=== PATIENT | female | born 1980 | race Caucasian/White ===

== ENCOUNTER 2020-03-13 14:12 | Emergency (ER) | payer OTHER, SELFPAY ==
--- NOTE | 2020-03-13 14:20 | ECG_ITS ---
Test Reason : CHEST PAIN Blood Pressure : / mmHG Vent. Rate : 127 BPM Atrial Rate : 127 BPM P-R Int : 158 ms QRS Dur : 080 ms QT Int : 302 ms P-R-T Axes : 064 021 039 degrees QTc Int : 438 ms Sinus tachycardia Otherwise normal ECG When compared with ECG of 16-NOV-2019 13:00, Heart rate has increased Referred By: Generic ED Physician Electronically Signed By:TRAM LEOS
--- NOTE | 2020-03-13 16:37 | ED.EAR ---
HPI - Ear Problem General Chief complaint: Ear Problems Stated complaint: rapid heart rate Time Seen by Provider: 03/13/20 16:37 Source: patient Mode of arrival: ambulatory Limitations: no limitations History of Present Illness HPI Narrative: Patient coming to the ED for ear swelling and discharge and increased pain. Patient on one day for otitis externa using ofloxacin. On her way here she had tachycardia with known [place] disease Complaint: ear pain Location: right ear Duration: constant Severity: moderate Discharge from ear: yes - purulent Associated symptoms ear: fever Related Data Allergies Allergy/AdvReac Type Severity Reaction Status Date / Time No Known Allergies Allergy Unverified 02/28/20 19:08 [No Known Allergies*] Review of Systems Constitutional: Constitutional: Reports no additional constitutional complaints Eyes: Eyes: Reports no additional eye complaints ENT: Denies dizziness Cardiovascular: Cardiovascular: Reports no additional cardiovascular complaints Respiratory: Respiratory: Reports as per HPI Gastrointestinal: Gastrointestinal: Reports no additional gastrointestinal complaints Genitourinary: Genitourinary: Reports no additional female genitourinary complaints Musculoskeletal: Musculoskeletal: Reports no additional musculoskeletal complaints Integumentary/Breasts: Skin/Breast: Denies rash Neurologic: Reports system reviewed and no additional complaints, except as documented, Denies dizziness and Denies Sensory deficit (Neuro) Psychiatric: Psychiatric: Denies anxiety [facility] Past Medical History Medical History (Updated 03/13/20 @ 17:02 by Jose Jaramillo MD) Anxiety POTS (postural orthostatic tachycardia syndrome) Social History Social History Advance Directives: No Advance Directives Information Provided: Yes Physical Exam Const: General: healthy appearing Nutritional Appearance: average body habitus Orientation/consciousness: oriented to person and patient oriented x3 Limitations: no limitations HENMT: Head: Yes normal to inspection Ears: external ear abnormal (patient with severe right otitis externa with swelling and discharge) General nose exam: Normal external nose present Mouth: Normal oral and palatal mucosa present and oropharynx normal Throat: Yes posterior oropharynx normal Eyes: General: appearance normal, both eyes and all related structures Neck: Other: supple Neck: Yes normal visual inspection Chest: Chest palpation & inspection: normal inspection of the chest Resp: Auscultation: clear to auscultation bilaterally Cardio: Jugular venous distension: no JVD Rate: regular rate Rhythm: regular rhythm Heart sounds: S1 normal heart sound present and S2 normal heart sound present GI: Inspection: Yes normal to inspection Palpation (GI): Soft to palpation, nontender and No hepatosplenomegaly present Auscultation: normal bowel sounds : General: Yes no CVA tenderness Back/Spine/Pelvis: Back: no CVA tenderness Skin: General skin exam: no rashes or lesions noted Neuro: General: oriented to person and patient oriented x3 Cranial nerves: Yes CN's II-XII intact bilaterally Motor exam (neuro): 5/5 motor strength present throughout Sensory Exam: No Sensory deficit (Neuro) Extrem: General: Yes normal to inspection Psych: Appearance: grossly normal Course Reevaluation(s) Reevaluation #1: heart rate 115, placed earwick and applied oflaxacin Time: 16:54 Reevaluation #2: procedure: earwick application Time: 16:58 MDM - Ear ECG Data Attestation: I personally reviewed and interpreted this ECG as follows: ECG interpretation date: 03/13/20 ECG interpretation time: 16:42 Interpretation: sinus rate of 125, no st or twave changes Discharge Plan Discharge Clinical Impression: Otitis externa Qualifiers: Otitis externa type: swimmer's ear Chronicity: acute Laterality: right Qualified Code(s): H60.331 - Swimmer's ear, right ear Patient Disposition: Home, Self-Care Instructions: Otitis Externa (ED)
[2020-03-13 16:43] VITALS: BP 146/94; PULSE 126; RESP 14; O2SAT 100; BMI 25.5
[2020-03-13 16:51] VITALS: TEMP 38.3
[2020-03-13 17:29] VITALS: BP 158/89; PULSE 108; PULSE 115; RESP 12; O2SAT 100
== END 2020-03-13 18:10 | disposition home or self-care (01) ==
PROVIDERS: Emergency Provider Emergency Medicine; PCP Internal Medicine
DX: H60.331 Swimmer's ear, right ear (principal); H60.501 Unspecified acute noninfective otitis externa, right ear; I49.8 Other specified cardiac arrhythmias
CPT/HCPCS: 93005; 93010; 99283; 99284

== ENCOUNTER 2025-05-17 15:24 | Outpatient (REF) | payer OTHER, SELFPAY ==
[2025-05-17 18:33] LABS: Appearance Urine Turbid; Glucose Urine UA Negative (Negative); PH 5.5 (5.0-9.0); Specific Gravity - Urine 1.025 (1.005-1.025)
[2025-05-17 18:52] LABS: Hematocrit 44.5 % (37.0-47.0); Hemoglobin 15.4 g/dl (12.0-16.0); Imm Gran Abs Auto 0.02 X10*3/uL (0.00-0.03); Imm Gran Pct Auto 0.3 % (0.0-0.4); Lymphocytes Absolute Auto 1.3 X10*3/uL (1.2-4.9); MANUAL DIFF FLAG SCAN; Mean Corpuscular HGB Conc 34.6 g/dl (31.0-35.0); Mean Corpuscular Hemoglobin 29.9 pg (27.0-33.0); Mean Corpuscular Volume 86.4 fL (80.0-98.0); NRBC Abs Auto 0.000 X10*3/uL (0.0-0.012); NRBC Pct Auto 0.0 /100WBC (0.0-0.2); PLT CLUMP 1; Red Blood Count 5.15 X10*6/uL (4.20-5.50); SCAN SMEAR FLAG 1
[2025-05-17 19:24] LABS: Alanine Aminotransferase 20 U/L (0-31); Albumin Level 4.8 g/dL (3.5-5.0); Alkaline Phosphatase 77 U/L (39-117); Anion Gap 10 (12-20); Aspartate Amino Transferase 21 U/L (5-31); Blood Urea Nitrogen 12 mg/dL (9-16); Calcium 8.9 mg/dL (8.4-10.2); Carbon Dioxide 29 mmol/L (22-29); Chloride 108 mmol/L (96-108); Cholesterol 165 mg/dL (<200); Estimated Glomerular Filt Rate > 60; HDL Cholesterol 44 mg/dL (>40); Magnesium 2.3 mg/dL (1.6-2.6); Potassium 3.8 mmol/L (3.3-5.1); Sodium 143 mmol/L (135-145); Total Protein 7.2 g/dL (6.5-8.0); Triglycerides 175 mg/dL (<150)
[2025-05-17 19:27] LABS: Platelet Count 300 X10*3/uL (160-400); White Blood Count 7.4 X10*3/uL (4.8-10.8)
--- OUTSIDE RECORDS SUMMARY | 2025-05-17 19:47 | XMS_ITS | Clinical Summary ---
Author Organization [facility], Address [address] [place] [address] [place] [address] Phone Care Team Providers Care Bss Solution Architect Name Role Phone Reyna Bailey MD Primary Care Provider Unavailab le Allergies No known active allergies Medications Spacer/Aero-Hol ding Chambers (OptiChamber Gege) misc USE DIRECTED 0 Active predniSONE (DELTASONE) 20 MG tablet TAKE 3 TABS BY MOUTH WITH FOOD ONCE DAILY X2 DAYS. THEN 2 TABS X3 DAYS THEN 1 TAB X2 DAYS THEN STOP 0 Active nystatin (MYCOSTATIN) 333876 units tablet 0 Active metoclopramide (REGLAN) 10 MG tablet TAKE 1 TABLET BY MOUTH 4 TIMES A DAY (BEFORE MEALS AND AT BEDTIME) NEEDED FOR NAUSEA 0 Active ALPRAZolam (XANAX) 0.25 MG tablet TAKE 2 TABLETS BY MOUTH DAILY 0 Active albuterol HFA (PROVENTIL HFA;VENTOLIN HFA) 108 (90 Base) MCG/ACT inhaler INHALE 2 PUFFS INTO THE LUNGS EVERY 6 HOURS NEEDED FOR COUGH, WHEEZING OR SHORTNESS OF BREATH 0 Active Social History Tobacco Use Types Packs/Day Years Used Date Smoking Tobacco: Unknown Comments Unknown Sex and Gender Information Value Date Recorded Sex Assigned at Not on file Legal Sex Female 12:45 PM EDT Gender Identity Not on file Sexual Orientation Not on file Plan of Treatment Health Maintenance Due Date Last Done Comments Hepatitis B Vaccine (1 of 3 - 19+ 3-dose series) 1997 Influenza Vaccine (#1) 2025 Pneumococcal Vaccine: Peds ( 0 to 5 Years) and At-Risk Patients (6 to 49 Years) Aged Out No longer eligible b ased on patient's age to complete this topic Insurance [employer] Care Teams Bss Solution Architect Relationship Specialty Start Date End Date Reyna Bailey MD PCP - General Internal Medicine 02/06/20
[2025-05-18 00:04] LABS: Folate 14.0 ng/mL (> or = 4.0); Vitamin B12 505 pg/mL (200-900)
[2025-05-18 08:30] LABS: HBsAGNum1 0.50 S/CO (0.00-0.99); HIV Num 1 0.05 S/CO (0.00-0.99); Hepatitis B Surface Antigen Negative (Negative); ~HepC Num1 0.08 S/CO (0.00-0.79); ~Hepatitis B Surface Antibody REACTIVE (Nonreactive); ~Hepatitis C Antibody Nonreactive (Nonreactive)
[2025-05-18 08:32] LABS: Syphilis Screen Nonreactive (Nonreactive)
[2025-05-23 15:28] LABS: VITAMIN D (1,25 OH) D3 72 pg/mL; Vit D (1,25-Dihydroxy) Total 72 pg/mL (18-72); Vitamin D (1,25 OH) D2 <8 pg/mL
== END 2025-05-17 15:25 | disposition home or self-care (01) ==
LOC: HO.HKASLDS 15:24
PROVIDERS: PCP Internal Medicine; Visit Provider Student in an Organized Health Care Education/Training Program
DX: Z13.9 Encounter for screening, unspecified (principal); D89.40 Mast cell activation, unspecified; Z77.120 Contact with and (suspected) exposure to mold (toxic); A44.9 Bartonellosis, unspecified; D25.9 Leiomyoma of uterus, unspecified; Z90.710 Acquired absence of both cervix and uterus; H61.899 Other specified disorders of external ear, unspecified ear
CPT/HCPCS: 36415; 80053; 80061; 81003; 82607; 82652; 82746; 83036; 83735; 84443; 85025; 86706; 86780; 86803; 87340; 87389; 96127

== ENCOUNTER 2025-05-17 15:24 | Outpatient (AMB) | payer OTHER, SELFPAY ==
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
[2025-05-17 15:35] VITALS: BP 140/78; PULSE 59; RESP 18; TEMP 36.8; O2SAT 99; BMI 21.8
--- OUTSIDE RECORDS SUMMARY | 2025-05-17 19:24 | XMS_ITS | Encounter Summary ---
Author Organization [facility] and [facility] Address [address] [place] [id number] Care Team Providers Care Comprehensive Advisor Name Role Phone Unavailable Primary Care Provider Unavailabl e Encounter Details Date Type Department Care Team (Late st Contact Info) Description 01/12/2023 Lab Requisition [facility] Specimens [address] [id number] Austin Coyle MD [address] [address] Mast cell activation, unspecified (HC Code) Social History Tobacco Use Types Packs/Day Years Used Date Smoking Tobacco: Never Assessed Comments Unknown Sex and Gender Information Value Date Recorded Sex Assigned at Not on file Legal Sex Female 3:17 PM EDT Gender Identity Not on file Sexual Orientation Not on file documented as of this encounter Plan of Treatment Not on file documented as of this encounter Procedures Procedure Name Priority Date/Time Associated Diagnosis Comments OUTSIDE CONSULT (LAB ORDER ONLY) ([facility] LM[facility]) Routine 01/12/2023 Mast cell activation, unspecified (HC Code) documented in this encounter Results * Outside Consult ([facility]) (01/12/2023) Case Report Outside Slides Case: [id number] Authorizing Provider: Austin Coyle MD Collected: 01/12/2023 Ordering Location: [facility] Received: 01/13/2023 08:40 AM Specimens Pathologist: Jorge Turpin MD Specimen: Stomach, Gastric, [place], [place], [id number], 09/03/2020 01/14/2023 8:34 AM EDT [facility] DEPARTMENT OF PATHOLOGY Final Diagnosis 1. Stomach, Gastric, [place], [place], [id number], 09/03/2020, Biopsy: Gastric mucosa with no significant pathologic change. At the request of Dr. Coyle, CD117 staining was performed. CD117 highlights up to 26 cells/HPF The mast cells seen lack features of neoplasia. 01/14/2023 8:34 AM T [facility] DEPARTMENT OF PATHOLOGY at 0834 EDT This electronic signature indicates that the pathologist has personally reviewed the available gross and/or microscopic material and has based the diagnosis on that review. 01/14/2023 8:34 AM [facility] DEPARTMENT OF PATHOLOGY Clinical History Duodenitis 01/14/2023 8:34 AM [facility] DEPARTMENT OF PATHOLOGY Gross Description 1. Stomach, Gastric, [place], [place], [id number], 09/03/2020 Received from [place], [place], labeled [id number], 2 unstained slides labeled A1-1, A1-2 with corresponding report dated 09/03/2020. 01/14/2023 8:34 AM T [facility] DEPARTMENT OF PATHOLOGY Pathology Department [facility] DEPARTMENT OF PATHOLOGY [address] [place] [phone] Director: Traci Sousa M.D. [place]: [id number] [place]: [id number] CLIA: [id number] 01/14/2023 8:34 AM T [facility] DEPARTMENT OF PATHOLOGY Tissue SPECIMEN FROM STOMACH / Unknown 01/12/2023 01/13/2023 8:40 AM EDT Austin Coyle MD PATHOLOGY/CYTOLOGY ORDERABLE S Final Result [facility] DEPARTMENT OF PATHOLOGY [address] [place] [address] [phone] documented in this encounter Visit Diagnoses Diagnosis Mast cell activation, unspecified (HC Code) documented in this encounter
--- OUTSIDE RECORDS SUMMARY | 2025-05-17 19:25 | XMS_ITS | Clinical Summary ---
Author Organization [facility] Address [address] [place] [address] Phone Care Team Providers Care Pharmacy Benefit Manager Name Role Phone Unavailable Primary Care Provider Unavailabl e Social History Tobacco Use Types Packs/Day Years Used Date Smoking Tobacco: Never Assessed Comments Unknown Sex and Gender Information Value Date Recorded Sex Assigned at Not on file Legal Sex Female 3:17 PM EDT Gender Identity Not on file Sexual Orientation Not on file Plan of Treatment Health Maintenance Due Date Last Done Comments HIV screening 1991 Hepatitis C screening 1996 Tetanus adult (Td q 10,TDAP once) 1998 Cervical cancer screening 1999 Breast cancer screening 2018 Lipid disorder screening 2018 Colon cancer screening, Colonoscopy 2023 Diabetes screening 2023 Influenza vaccine 01/11/2025 Covid-19 vaccine series (2024- season) 2025 RSV Immunization (1 - 1-dose 75+ series) 2053 Meningococcal B Vaccine Aged Out No l onger eligible based on patient's age to complete this topic Meningococcal Vaccine Aged Out No chico macie eligible based on patient's age to complete this topic Pneumococcal Vaccine (2 - 49 years) Aged Out No longer eligible based on patient's age to complete this topic Insurance COMMERCIAL GENERIC COMMERCIAL GENERIC COMMERCIAL GENERIC
--- OUTSIDE RECORDS SUMMARY | 2025-05-17 19:25 | XMS_ITS | Clinical Summary ---
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 Not on rebecca e 10/08/2022 Are you concerned about learning? Not on file 10/08/2022 No 10/08/2022 No 10/08/2022 Digital Access Answer Date Recorded No 11/09/2022 No 11/09/2022 Reliable internet access at home? Not on file 11/09/2022 Device with a working camera? Not on file Intimate Partner Violence Answer Date R ecorded Are you denied basic needs s uch as food, clothing, or medical care? No 09/01/2022 In the past 12 months have y ou been in a relationship with a person who hurts, threatens, or tries to control you? No 09/01/2022 Are you denied basic needs s uch as food, clothing, or medical care? No 09/01/2022 In the past 12 months have y ou been in a relationship with a person who hurts, threatens, or tries to control you? No 09/01/2022 Comments Unknown Sex and Gender Information Value Date Recorded Sex Assigned at Female 04/30/2021 2:25 PM EST Legal Sex Female 11:27 AM EDT Gender Identity Female 04/30/2021 2:25 PM EST Sexual Orientation Straight 04/30/2021 2: 25 PM EST Last Filed Vital Signs Vital Sign Reading Time Taken Comments Blood Pressure 110/72 11/18/2022 1:21 PM EDT Pulse 78 11/18/2022 1:21 PM EDT Temperature 36.7 C (98.1 F) 11/18/2022 1:21 PM EDT Respiratory Rate 18 11/18/2022 1:21 PM EDT Oxygen Saturation 98% 11/18/2022 1:21 PM EDT Inhaled Oxygen Concentration - - Weight 67.1 kg (148 lb) 09/01/2022 4:04 PM EDT Height 170.2 cm (5' 7 ) 08/18/2022 9:52 AM EST Body Mass Index 23.18 08/18/2022 9:52 AM EST Plan of Treatment Health Maintenance Due Date Last Done Comments LIPID PANEL 1978 DEPRESSION SCREENING 1990 HEPATITIS C SCREENING 1996 HIV ONE-TIME SCREENING (18-6 5 YEARS) 1996 PAP SMEAR 1999 MAMMOGRAM 2018 COLOGUARD 2023 COLONOSCOPY 2023 COLORECTAL CANCER SCREENING 2023 FIT TEST 2023 FOBT 2023 SIGMOIDOSCOPY 2023 VIRTUAL COLONOSCOPY 2023 Adult Td,Tdap Booster 05/17/2024 05/17/2014 , 02/24/1999 INFLUENZA VACCINE (#1) 2025 COVID-19 VACCINE (2024-2 6 season) 2025 SMOKING STATUS SCREENING (On ce After 26 Yrs) Completed 11/18/2022 HEPATITIS A VACCINES Aged Out No long er eligible based on patient's age to complete this topic HIB VACCINES Aged Out No longer eligi ble based on patient's age to complete this topic MENINGOCOCCAL VACCINES (ACWY) Aged Out No longer eligible based on patient's age to complete this topic MENINGOCOCCAL VACCINES (B) Aged Out N o longer eligible based on patient's age to complete this topic PNEUMOCOCCAL VACCINES (0-49 years) Aged Out No longer eligible b ased on patient's age to complete this topic Medical Devices Not on file Insurance [employer] Member Subscriber Plan / Payer (Ef fective 2021-Present) Name:Jerod Delgado Relation to Subscriber:Self Name:Jerod Delgado Payer ID:[id number] Group ID:[id number] Type:Medicaid Address: [address] [employer] [facility] [facility] [employer] Member Subscriber Plan / Payer (Ef fective 2021-Present) Name:Jerod Delgado Relation to Subscriber:Self Name:Jerod Delgado Payer ID:[id number] Group ID:[id number] Type:Medicaid Address: [address] [employer] [place] [address]O [facility] [employer] [facility] Member Subscriber Plan / Payer (Ef fective 2021-Present) Name:Jerod Delgado Relation to Subscriber:Self Name:Jerod Delgado Payer ID:[id number] Group ID:[id number] Type:Medicaid Address: [address] [employer] Member Subscriber Plan / Payer (Ef fective 2022-Present) Name:Jerod Delgado Relation to Subscriber:Self Name:Jerod Delgado Payer ID:Not on file Type:Medicaid Address: [place] [id number] [facility] [address] [employer] Care Teams International Representative Relationship Specialty Start Date End Date Wanda Olivarez NP PCP - General Nurse Practitioner 08/20/22 Additional Source Comments The information contained in this document represents components of the legal health record. It is not the complete legal health record.[facility]
--- OUTSIDE RECORDS SUMMARY | 2025-05-17 19:25 | XMS_ITS | Encounter Summary ---
Author Organization [facility] Address [address] [place] [address] Phone Care Team Providers Care Kitchen Steward Name Role Phone Xochitl Casanova MD Primary Care Provide r Wanda Olivarez NP Primary Care Provider [phone] Encounter Details Date Type Department Care Team (Late st Contact Info) Description 09/27/2021 Procedure Pass [facility], [place] [address] [facility], [address] [place] [address] Social History Tobacco Use Types Packs/Day Years Used Date Smoking Tobacco: Never Smokeless Tobacco: Never Alcohol Use Standard Drinks/Week Comments Not Currently 0 (1 standard drink = 0.6 oz pur e alcohol) Comments Unknown Sex and Gender Information Value Date Recorded Sex Assigned at Female 04/30/2021 2:25 PM EST Legal Sex Female 11:27 AM EDT Gender Identity Female 04/30/2021 2:25 PM EST Sexual Orientation Straight 04/30/2021 2: 25 PM EST documented as of this encounter Functional Status * Calculated C-SSRS Risk Score (Lifetime/Recent) Answer Date of Assessment Author High Risk 09/27/2021 3:50 PM EDT Mumtaz Joy RN * [place] Suicide Severity Rating Scale (Screener/Recent Self-Report) Question Answer Date of Assessment Author 1. Wish to be (Past 1 Month) Yes 09/27/2021 3:50 PM EDT Nancie Joy RN 2. Non-Specific Active Suicidal Thoughts (Past 1 Month) Yes 09/27/2021 3:50 PM EDT Nancie Joy RN 3. Active Suicidal Ideation with any Methods (Not Plan) Without Intent to Act (Past 1 Month) Yes 09/27/2021 3:50 PM EDT Nancie Joy RN 4. Active Suicidal Ideation with Some Intent to Act, Without Specific Plan (Past 1 Month) No 09/27/2021 3:50 PM EDT Nancie Joy RN 5. Active Suicidal Ideation with Specific Plan and Intent (Past 1 Month) Yes 09/27/2021 3:50 PM EDT Nancie Joy RN 6. Suicidal Behavior (Lifetime) No 09/27/2021 3:50 PM EDT Nancie Joy RN documented as of this encounter Plan of Treatment Not on file documented as of this encounter Visit Diagnoses Not on filedocumented in this encounter Additional Health Concerns Infection Onset Date Last Indicated Resolved Time CoV-Risk 09/01/2022 09/01/2022 09/12/2022 1:23 AM EDT documented as of this encounter Care Teams Kitchen Steward Relationship Specialty Start Date End Date Xochitl Casanova MD [address] [place], [place] PCP - General 04/30/21 08/19/22 Wanda Olivarez NP [address] [place], [place] PCP - General Nurse Practitioner 08/20/22 documented as of this encounter Additional Source Comments The information contained in this document represents components of the legal health record. It is not the complete legal health record.[facility]
== END 2025-05-17 15:58 | disposition home or self-care (01) ==
LOC: HO.HMCFMS 15:25
PROVIDERS: PCP Internal Medicine; Visit Provider Student in an Organized Health Care Education/Training Program
DX: D89.40 Mast cell activation, unspecified (principal); Z77.120 Contact with and (suspected) exposure to mold (toxic); A44.9 Bartonellosis, unspecified; D25.9 Leiomyoma of uterus, unspecified; Z90.710 Acquired absence of both cervix and uterus; H61.899 Other specified disorders of external ear, unspecified ear